=== PATIENT | male | born 1970 | race African-American/Black ===

== ENCOUNTER 2020-08-06 14:05 | Inpatient (IN) | payer OTHER ==
[2020-08-06] VITALS (9 sets, daily range): BP systolic 118–154; BP diastolic 71–97
[~2020-08-06] VITALS: Ht 180.3 cm; Wt 129.3 kg
[2020-08-06] MEDS ORDERED: NORVASC10 MG PO (14:21)
[2020-08-06] MEDS ORDERED: COZAAR 25 MG TA25 M2 PO (14:21)
[2020-08-06] MEDS ORDERED: SPIRONOLACTONE25 MG PO (14:22)
[2020-08-06] MEDS ORDERED: HYDROCHLOROTHIA25 M2 PO (14:22)
[2020-08-06 14:45] LABS: MCH 29.8 pg (26.0-34.0); NUCLEATED RBCS 0 /100WBC
--- NOTE | 2020-08-06 14:48 | EKG ---
[place] [address] ELECTROCARDIOGRAM REPORT Name: KAR ALEGRIA Garett NEW Room: [facility]#: [id number] Admission: 08/06/20 Attend Phys: Discharge: Date of : 68 Date of Service: 08/06/20 1433 Report #: [id number] THIS REPORT FOR: //name// [facility] ED Test Date: 2020-08-06 Test Time: 14:33:43 Pat Name: KAR ALEGRIA Department: Room: Gender: Java Programmer Analyst: [facility] : 1970 Requested By: Lito Booker Order Number: [id number] MD: Bernardino Levy Measurements Intervals [place] Rate: 100 P: 64 [place]: 207 QRS: 32 QRSD: 98 T: 26 QT: 326 QTc: 421 Interpretive Statements Sinus tachycardia Prolonged [place] interval No previous ECG available for comparison Electronically Signed On 08-06-2020 14:48:03 [employer] by Bernardino Levy [email or web address] <ELECTRONICALLY SIGNED> By: Bernardino Levy MD, [facility] 08/06/20 1448 1433 1433 Bernardino Levy MD, FACC /EPI
[2020-08-06 14:49] LABS: ABSOLUTE MONOCYTES 0.3 thou/uL (0.0-1.2); ABSOLUTE NEUTROPHILS 6.4 thou/uL (1.6-8.1); BASOPHILS 0.6 %; EOSINOPHILS 0.6 %; HEMATOCRIT 46.7 % (42.0-52.0); LYMPHOCYTES 12.4 %; MCHC 30.1 g/dL (28.0-37.0); MCV 99.2 fL (80.0-100.0); MONOCYTES 4.2 %; MPV 10.6 fl. (7.2-11.1); PLATELET COUNT* 285 thou/uL (150-400); POLYS 82.2 %; RBC 4.71 mil/uL (4.50-6.00); RDW-CV 14.4 % (10.5-14.5); WBC 7.8 thou/uL (4.0-11.0)
[2020-08-06 14:58] LABS: ALBUMIN 3.5 g/dL (3.4-5.0); CALCIUM 8.8 mg/dL (8.5-10.1); CREATININE 3.1 mg/dL (0.6-1.3); TOTAL BILIRUBIN 0.5 mg/dL (<0.1-1.0); TOTAL PROTEIN 7.8 g/dL (6.4-8.2)
[2020-08-06 14:59] LABS: POTASSIUM 7.4 mmol/L (3.5-5.1)
[2020-08-06 15:25] LABS: BE -3.9 mmol/L (-2 to +3)
[2020-08-06 15:32] LABS: URINE BILIRUBIN NEGATIVE (Negative); URINE BLOOD NEGATIVE (Negative); URINE CLARITY CLEAR; URINE COLOR YELLOW; URINE GLUCOSE-RANDOM 3+ (Negative); URINE KETONES NEGATIVE (Negative); URINE LEUKOCYTES-REFLEX NEGATIVE (Negative); URINE NITRITE-REFLEX NEGATIVE (Negative); URINE PROTEIN NEGATIVE (Negative); URINE SPECIFIC GRAVITY <= 1.005 (1.005-1.030); URINE UROBILINOGEN 0.2 E.U./dl (0.2-1.0)
[2020-08-06 16:23] LABS: CALCIUM 9.1 mg/dL (8.5-10.1); CREATININE 3.1 mg/dL (0.6-1.3)
[2020-08-06 16:25] LABS: POTASSIUM 7.1 mmol/L (3.5-5.1)
[2020-08-06 17:37] LABS: CALCIUM 9.2 mg/dL (8.5-10.1); MAGNESIUM 3.1 mg/dL (1.8-2.4); PHOSPHORUS* 3.4 mg/dL (2.5-4.9)
[2020-08-06 17:39] LABS: POTASSIUM 6.2 mmol/L (3.5-5.1)
[2020-08-06 21:29] LABS: ALBUMIN 3.5 g/dL (3.4-5.0); CALCIUM 9.4 mg/dL (8.5-10.1); CREATININE 2.6 mg/dL (0.6-1.3); MAGNESIUM 3.2 mg/dL (1.8-2.4)
[2020-08-06 21:41] LABS: POTASSIUM 5.1 mmol/L (3.5-5.1)
[2020-08-07] VITALS (20 sets, daily range): BP systolic 118–164; BP diastolic 82–105
[2020-08-07 01:10] LABS: CALCIUM 10.2 mg/dL (8.5-10.1); CREATININE 2.5 mg/dL (0.6-1.3)
[2020-08-07 01:12] LABS: ALBUMIN 3.5 g/dL (3.4-5.0); MAGNESIUM 3.1 mg/dL (1.8-2.4); POTASSIUM 4.1 mmol/L (3.5-5.1)
[2020-08-07 04:06] LABS: GLYCOHEMOGLOBIN (HGB A1C) 12.8 % (4.8-5.6)
[2020-08-07 05:26] LABS: CREATININE 2.1 mg/dL (0.6-1.3); POTASSIUM 3.8 mmol/L (3.5-5.1)
[2020-08-07 05:29] LABS: ALBUMIN 3.3 g/dL (3.4-5.0); MAGNESIUM 2.8 mg/dL (1.8-2.4); PHOSPHORUS* 4.2 mg/dL (2.5-4.9)
[2020-08-07] MEDS ORDERED: OMEPRAZOLE 20 M20 M1 PO (06:32)
[2020-08-08 04:51] VITALS: BP 136/85
[2020-08-08 05:10] LABS: ABSOLUTE BASOPHILS 0.1 thou/uL (0.0-0.2); ABSOLUTE EOSINOPHILS 0.1 thou/uL (0.0-0.7); ABSOLUTE LYMPHOCYTES 2.3 thou/uL (0.8-5.3); ABSOLUTE MONOCYTES 0.3 thou/uL (0.0-1.2); ABSOLUTE NEUTROPHILS 5.3 thou/uL (1.6-8.1); BASOPHILS 0.7 %; EOSINOPHILS 1.8 %; HEMATOCRIT 42.6 % (42.0-52.0); HEMOGLOBIN 14.3 gm/dL (14.0-18.0); LYMPHOCYTES 27.8 %; MCH 29.9 pg (26.0-34.0); MCHC 33.6 g/dL (28.0-37.0); MONOCYTES 4.3 %; MPV 10.5 fl. (7.2-11.1); NUCLEATED RBCS 0 /100WBC; PLATELET COUNT* 244 thou/uL (150-400); POLYS 65.4 %; RBC 4.79 mil/uL (4.50-6.00); RDW-CV 14.4 % (10.5-14.5); WBC 8.1 thou/uL (4.0-11.0)
[2020-08-08 05:44] LABS: ALBUMIN 3.2 g/dL (3.4-5.0); CHLORIDE 98 mmol/L (98-107); SODIUM 132 mmol/L (136-145)
[2020-08-08 05:57] LABS: ANION GAP 11 mmol/L (7-16); BUN 39 mg/dL (7-18); CO2 23 mmol/L (21-32); CREATININE 2.2 mg/dL (0.6-1.3); GLUCOSE 451 mg/dL (70-99); POTASSIUM 4.6 mmol/L (3.5-5.1)
[2020-08-08 06:50] LABS: ALKALINE PHOSPHATASE 118 U/L (46-116); CALCIUM 8.4 mg/dL (8.5-10.1); PHOSPHORUS* 3.8 mg/dL (2.5-4.9); SGOT 24 U/L (15-37); SGPT 39 U/L (30-65); TOTAL BILIRUBIN 0.2 mg/dL (<0.1-1.0)
[2020-08-08 07:30] VITALS: BP 176/106
[2020-08-08] MEDS ORDERED: LANTUS SOL100 UNIT/1 SUBQ (08:44)
[2020-08-08] MEDS ORDERED: LANCET 30G-GLU1 EACH SUBQ (08:44)
[2020-08-08] MEDS ORDERED: HYDRALAZINE 5050 MG PO (08:44)
[2020-08-08] MEDS ORDERED: INSULIN LI100 UNIT/2 SUBQ (08:44)
[2020-08-08] MEDS ORDERED: GLUCOTROL5 MG PO (08:44)
[2020-08-08 10:02] VITALS: BP 176/106
[2020-08-08 10:41] VITALS: BP 176/106
[2020-08-08 17:33] VITALS: BP 176/106
== END 2020-08-08 17:35 | disposition home or self-care (01) | DRG 637 ==
LOC: M.ERS 14:05 → M.ICU 17:11 → M.TBA-ER 17:11 → M.ICU 18:37 → M.ERS 18:37 → M.TBA-ER 19:13 → M.ICU 19:13 → M.3W 08-07 13:58
PROVIDERS: Emergency Medicine Emergency Medical Services; ADMIT Internal Medicine; ATTEND Internal Medicine
DX: E11.00 Type 2 diabetes mellitus with hyperosmolarity without nonketotic hyperglycemic-hyperosmolar coma (NKHHC) (principal); N17.0 Acute kidney failure with tubular necrosis; E87.1 Hypo-osmolality and hyponatremia; E11.649 Type 2 diabetes mellitus with hypoglycemia without coma; E87.5 Hyperkalemia; E66.9 Obesity, unspecified; E11.65 Type 2 diabetes mellitus with hyperglycemia; I12.9 Hypertensive chronic kidney disease with stage 1 through stage 4 chronic kidney disease, or unspecified chronic kidney disease; E86.9 Volume depletion, unspecified; N18.30 Chronic kidney disease, stage 3 unspecified; R31.9 Hematuria, unspecified; Z20.822 Contact with and (suspected) exposure to COVID-19; Z68.39 Body mass index [BMI] 39.0-39.9, adult